=== PATIENT | male | born 1985 | race Hispanic/Latino ===

== ENCOUNTER 2018-06-10 11:05 | Outpatient (CLI) | payer BC ==
--- NOTE | 2018-06-10 13:51 | ULT ---
SCROTAL SONOGRAM WITH DUPLEX EVALUATION: Date: HISTORY: Right testicular pain. FINDINGS: Right testicle is 3.7 cm and left is 3.6 cm. Each has a normal appearance with good color and spectra l Doppler flow. Small amount of fluid within each side of the scrotum. No focal mass. IMPRESSION: 1. No evidence of testicular mass or torsion. 2. Small bilateral hydroceles. Cause is not evident. POS: BABS
== END 2018-06-10 11:06 | disposition home or self-care (01) ==
LOC: SCSULT 11:05
PROVIDERS: ATTEND Family Medicine
DX: N50.82 Scrotal pain (principal); N43.2 Other hydrocele
CPT/HCPCS: 76870; 93976

== ENCOUNTER 2020-11-07 08:54 | Day surgery (SDC) | payer BC ==
[2020-11-07] MEDS ORDERED: Ketorolac Tromethamine 30 MG/ML VIAL ONE ×2 (09:20→09:22)
[2020-11-07] MEDS ORDERED: Lidocaine 1% PF 5 ML VIAL ONE (09:20)
[2020-11-07] MEDS ORDERED: Rocuronium Bromide 10 MG/ML (10ML VIAL) ONE (09:20)
[2020-11-07] MEDS ORDERED: Ondansetron PF 4 MG/2 ML Vial ONE ×2 (09:20→09:22)
[2020-11-07] MEDS ORDERED: Glycopyrrolate 0.2 MG/ML 5 ML SYRINGE ONE (09:20)
[2020-11-07] MEDS ORDERED: ePHEDrine 50 MG/ML VIAL ONE (09:20)
[2020-11-07] MEDS ORDERED: Dexamethasone 20 MG/5 ML VIAL ONE (09:20)
[2020-11-07] MEDS ORDERED: PROPOFOL 200 MG/20 ML VIAL ONE (09:20)
[2020-11-07 09:22] LABS: #Eosinphils 0.1 thou/uL (0.0-0.7); #Lymphocytes 1.7 thou/uL (1.20-3.40); #Neutrophils 11.2 thou/uL (1.40-6.50); %Basophils 0.3 % (0.0-1.0); %Eosinophils 0.9 % (0.0-10.0); %Lymphocytes 12.3 % (21.0-51.0); %Monocytes 7.1 % (0.0-10.0); %Neutrophils 79.4 % (42.0-75.0); Mean Corpuscular HGB CONC 33.9 g/dL (32.0-36.0); Mean Corpuscular Hemoglobin 30.8 pg (27.0-31.0); Mean Corpuscular Volume 90.8 fL (78.0-98.0); Mean Platelet Volume 7.5 fL (7.4-10.4); Platelet Count 398 thou/uL (130-400); RBC Distribution Width 12.6 % (11.5-14.5); Red Blood Cell (RBC) Count 4.86 mill/uL (4.70-6.10); White Blood Cell (WBC) Count 14.1 thou/uL (4.8-10.8)
[2020-11-07 09:42] LABS: CK (CPK) 101 U/L (30-200); Lipase 15 U/L (8-78)
[2020-11-07 10:13] LABS: ALT (SGPT) 17 U/L (8-55); AST (SGOT) 10 U/L (5-34); Albumin 4.7 g/dL (3.5-5.0); Alkaline Phosphatase 113 U/L (40-110); Anion Gap 15 mmol/L (10-20); BUN (Urea Nitrogen) 19 mg/dL (8.9-20.6); Bilirubin, Total 0.6 mg/dL (0.2-1.2); Calc. Creatinine Clearance 0 mL/min (70-130); Calcium 9.6 mg/dL (7.8-10.44); Carbon Dioxide 22 mmol/L (22-29); Chloride 103 mmol/L (98-107); Globulin 3.7 g/dL (2.4-3.5); Glucose 111 mg/dL (70-105); Potassium 3.8 mmol/L (3.5-5.1); Protein, Total 8.4 g/dL (6.0-8.3); Sodium 136 mmol/L (136-145)
[2020-11-07] MEDS ORDERED: cefOXitin 2 GM in Sodium Chloride 0.9% 100 ML IVPB SCH (12:45)
[2020-11-07 13:26] LABS: SARS-CoV-2 NAA Rapid Test Not Detected (NotDetected)
[2020-11-07] MEDS ORDERED: Bupivacaine 0.25% HCL 30 ML VIAL ONE (13:35)
[2020-11-07] MEDS ORDERED: XYLOCAINE 2%-EPI 1:100,000 20 ML VIAL ONE (13:35)
[2020-11-07] MEDS ORDERED: Fentanyl 100 MCG/2 ML VIAL ONE (14:04)
[2020-11-07] MEDS ORDERED: cefOXitin Sodium/Dextrose 2 GM/50 ML BAG ONE (14:09)
[2020-11-07] MEDS ORDERED: Midazolam HCl 2 mg/2 ml Vial ONE (14:13)
[2020-11-07] MEDS ORDERED: Dexmedetomidine 200 MCG/2 ML VIAL ONE (14:21)
[2020-11-07] MEDS ORDERED: HYDROmorphone 0.5 MG/0.5 ML SYRINGE ONE (14:21)
== END 2020-11-07 17:30 | disposition home or self-care (01) ==
LOC: ERS 08:54 → SDC 13:38
PROVIDERS: ATTEND Surgery
PROC: 0FT44ZZ Resection of Gallbladder, Percutaneous Endoscopic Approach (ICD-10-PCS; principal; 2020-11-07)
DX: K80.12 Calculus of gallbladder with acute and chronic cholecystitis without obstruction (principal); K66.0 Peritoneal adhesions (postprocedural) (postinfection); Z87.891 Personal history of nicotine dependence; Z20.822 Contact with and (suspected) exposure to COVID-19
CPT/HCPCS: 71045; 76705; 80053; 82550; 83690; 84484; 85025; 88304; 93005; 96372; 96374; 96375; J0500; J0690; J0694; J1100; J1170; J1885; J2250; J2405; J2704; J3010; J3490; S0020; U0002

== ENCOUNTER 2021-03-21 06:09 | Day surgery (SDC) | payer OTHER ==
[2021-03-20 11:06] VITALS: BMI 38.4
[2021-03-21] MEDS ORDERED: Bupivacaine 0.25% HCL 30 ML VIAL ONE (06:28)
[2021-03-21] MEDS ORDERED: EPINEPHrine 1 MG/ML AMP ONE (06:28)
[2021-03-21] MEDS ORDERED: Ketorolac Tromethamine 30 MG/ML VIAL ONE (06:54)
[2021-03-21] MEDS ORDERED: PROPOFOL 200 MG/20 ML VIAL ONE (06:54)
[2021-03-21] MEDS ORDERED: PHENYLEPHRINE-NS 100 MCG/ML 10 ML SYRINGE ONE (06:54)
[2021-03-21] MEDS ORDERED: Rocuronium Bromide 10 MG/ML (10ML VIAL) ONE (06:54)
[2021-03-21] MEDS ORDERED: Glycopyrrolate 0.2 MG/ML 5 ML SYRINGE ONE (06:54)
[2021-03-21] MEDS ORDERED: Lidocaine 1% PF 5 ML VIAL ONE (06:54)
[2021-03-21] MEDS ORDERED: Midazolam HCl 2 mg/2 ml Vial ONE (07:03)
[2021-03-21] MEDS ORDERED: Fentanyl 100 MCG/2 ML VIAL ONE ×2 (07:03→08:55)
[2021-03-21] MEDS ORDERED: Bupivacaine PF 0.5% 30 ML VIAL ONE (07:08)
[2021-03-21] MEDS ORDERED: SUGAMMADEX SODIUM 200 MG/2 ML VIAL ONE (08:33)
== END 2021-03-21 09:50 | disposition home or self-care (01) ==
LOC: SDC 06:09
PROVIDERS: ATTEND Orthopaedic Surgery
PROC: 0JBD0ZZ Excision of Right Upper Arm Subcutaneous Tissue and Fascia, Open Approach (ICD-10-PCS; principal; 2021-03-21)
PROC: 0LN30ZZ Release Right Upper Arm Tendon, Open Approach (ICD-10-PCS; principal; 2021-03-21)
DX: M77.11 Lateral epicondylitis, right elbow (principal); Z87.891 Personal history of nicotine dependence
CPT/HCPCS: J0171; J0690; J1885; J2250; J2704; J3010; S0020

== ENCOUNTER 2021-08-09 10:56 | Outpatient (CLI) | payer BC ==
[2021-08-09 12:35] LABS: Hemoglobin 14.4 g/dL (13.5-17.5); Mean Corpuscular HGB CONC 32.6 g/dL (32.0-36.0); Mean Corpuscular Volume 88.9 fl (81.2-95.1); Mean Platelet Volume 10.4 fl (7.4-10.4); Platelet Count 351 10x3/uL (150-450); RBC Distribution Width 12.9 % (11.5-14.5); Red Blood Cell (RBC) Count 4.97 10x6/uL (4.32-5.72); White Blood Cell (WBC) Count 6.1 10x3/uL (3.5-10.5)
[2021-08-09 21:46] LABS: SARS-CoV-2 PCR by NAA Not Detected (NotDetected)
== END 2021-08-09 10:57 | disposition home or self-care (01) ==
LOC: LABBT 10:56
PROVIDERS: ATTEND Orthopaedic Surgery
DX: Z01.812 Encounter for preprocedural laboratory examination (principal); Z20.822 Contact with and (suspected) exposure to COVID-19
CPT/HCPCS: 85027; U0003; U0005

== ENCOUNTER 2021-08-14 06:59 | Day surgery (SDC) | payer OTHER ==
[2021-08-12 14:53] VITALS: BMI 40.4
[2021-08-14] MEDS ORDERED: Midazolam HCl 2 mg/2 ml Vial ONE (09:06)
[2021-08-14] MEDS ORDERED: Fentanyl 100 MCG/2 ML VIAL ONE (09:09)
[2021-08-14] MEDS ORDERED: ceFAZolin 2 GM/DEX 5% 100 ML BAG ONE (09:20)
[2021-08-14] MEDS ORDERED: Rocuronium Bromide 10 MG/ML (10ML VIAL) ONE (09:23)
[2021-08-14] MEDS ORDERED: ePHEDrine 50 MG/ML VIAL ONE (09:23)
[2021-08-14] MEDS ORDERED: Ondansetron PF 4 MG/2 ML Vial ONE (09:23)
[2021-08-14] MEDS ORDERED: PROPOFOL 200 MG/20 ML VIAL ONE (09:23)
[2021-08-14] MEDS ORDERED: Dexamethasone 20 MG/5 ML VIAL ONE (09:23)
[2021-08-14] MEDS ORDERED: Lidocaine 1% PF 5 ML VIAL ONE (09:23)
[2021-08-14] MEDS ORDERED: Glycopyrrolate 0.2 MG/ML 5 ML SYRINGE ONE (09:23)
[2021-08-14] MEDS ORDERED: EPINEPHrine 1 MG/ML AMP ONE (10:07)
[2021-08-14] MEDS ORDERED: Bupivacaine PF 0.75% SDV 10 ML ONE (10:07)
[2021-08-14] MEDS ORDERED: Bupivacaine 0.25% 10 ML VIAL ONE (10:08)
== END 2021-08-14 12:00 | disposition home or self-care (01) ==
LOC: SDC 06:59
PROVIDERS: ATTEND Orthopaedic Surgery
PROC: 0JBF0ZZ Excision of Left Upper Arm Subcutaneous Tissue and Fascia, Open Approach (ICD-10-PCS; principal; 2021-08-14)
PROC: 0LN40ZZ Release Left Upper Arm Tendon, Open Approach (ICD-10-PCS; principal; 2021-08-14)
DX: M77.12 Lateral epicondylitis, left elbow (principal); K21.9 Gastro-esophageal reflux disease without esophagitis; M47.816 Spondylosis without myelopathy or radiculopathy, lumbar region; Z87.891 Personal history of nicotine dependence
CPT/HCPCS: J0171; J1100; J2250; J2405; J2704; J3010; J3490; S0020

== ENCOUNTER 2022-05-07 13:33 | Emergency (ER) | payer OTHER, SELFPAY | END 2022-05-07 15:57 | disposition home or self-care (01) | LOC: ERS 13:33 | DX: S61.211A Laceration without foreign body of left index finger without damage to nail, initial encounter (principal); Z87.891 Personal history of nicotine dependence; W55.39XA Other contact with other hoof stock, initial encounter | CPT/HCPCS: 71046 ==